=== PATIENT | female | born 1970 ===

== ENCOUNTER 2021-05-11 10:01 | Day surgery (SDC) | payer OTHER ==
[2021-05-11] MEDS ORDERED: ZITHROMAX500 MG PO (16:04)
[2021-05-11] MEDS ORDERED: IBU800 MG PO (16:04)
== END 2021-05-11 20:30 | disposition home or self-care (01) ==
LOC: CIR.AMB 10:01
PROVIDERS: ATTEND Obstetrics & Gynecology
DX: N72 Inflammatory disease of cervix uteri (principal); E78.5 Hyperlipidemia, unspecified; F17.200 Nicotine dependence, unspecified, uncomplicated; Z71.6 Tobacco abuse counseling; F41.9 Anxiety disorder, unspecified; Z20.822 Contact with and (suspected) exposure to COVID-19